=== PATIENT | male | born 1935 | race Caucasian/White ===

== ENCOUNTER → 2016-12-16 | Outpatient (CLI) | payer MEDICARE, BC ==
[~2016-12-16] MED LIST: IOHEXOL 240 MG/ML 50ML VIAL. PO ONE; IOHEXOL 300 MG/ML 75 ML VIAL. IV ONE
[2016-12-16 12:43] LABS: CALCIUM 9.5 mg/dL (8.5-10.1); CREATININE 1.2 mg/dL (0.7-1.3); GFR 57.8; POTASSIUM 4.3 mmol/L (3.5-5.1)
--- NOTE | 2016-12-16 14:02 | RAD ---
Indication lower right-sided pain. Ventral hernia. Imaging through the abdomen and pelvis was performed. Both oral and IV contrast were administered. Approximately 75 cc of Omnipaque 300 was administered intravenously. Note is made of a previous examination almost 12 years ago. There is some minimal pleural-parenchymal scarring at the lung bases. An acute or definite significant finding at either lung base is not seen. Some coronary artery calcification is noted. The liver and spleen appear unremarkable. The gallbladder appears grossly normal. There is no pancreatic pathology. No adrenal or renal anomalies are seen. No acute finding in the abdomen is apparent. The appendix is seen in the right lower quadrant and appears normal. There is extensive diverticulosis seen associated with the large bowel predominantly in the sigmoid colon. Active inflammation is not seen. The prostate is mildly enlarged. An acute finding in the pelvis is not apparent. There are some degenerative changes in the lumbar spine. IMPRESSION: No acute finding seen in the abdomen or pelvis. Moderately extensive diverticulosis associated with the large bowel. This is most pronounced in the sigmoid colon. Active inflammation is not seen. Mildly enlarged prostate PQRS Compliance Statement: One or more of the following individualized dose reduction techniques were utilized for this examination: 1. Automated exposure control 2. Adjustment of the mA and/or kV according to patient size 3. Use of iterative reconstruction technique
== END | disposition home or self-care (01) ==
LOC: LAB 12:03
PROVIDERS: ATTEND Family Medicine
DX: N40.0 Benign prostatic hyperplasia without lower urinary tract symptoms (principal); K43.9 Ventral hernia without obstruction or gangrene
CPT/HCPCS: 36415; 74177; 80048; Q9966; Q9967

== ENCOUNTER 2020-10-26 14:40 | Emergency (ER) | payer MEDICARE, BC ==
[~2020-10-26] VITALS: Ht 175.3 cm; Wt 75.0 kg
[2020-10-26 15:03] VITALS: BP 158/94
--- NOTE | 2020-10-26 15:27 | PHYS DOC ---
Past History Past Medical History: High Cholesterol, Hypertension, Other Additional Past Medical Histor: gout Past Surgical History: Other Additional Past Surgical Histo: stent in 2000 @ [facility] - right coronary artery Alcohol Use: None General Adult EDM: Chief Complaint: BLOOD IN URINE HPI: HPI: Patient is a 85-year-old male who presents with blood in his urine since this morning. Patient denies frequency or dysuria. Patient states this is happened one other time in the past but it resolved on its own. Denies abdominal pain. Patient has a history of gout, hypertension, enlarged prostate. Review of Systems: Review of Systems: Constitutional: Denies fever or chills Eyes: Denies change in visual acuity HENT: Denies nasal congestion or sore throat Respiratory: Denies cough or shortness of breath Cardiovascular: Denies chest pain or edema GI: Denies abdominal pain, nausea, vomiting, bloody stools or diarrhea : Denies dysuria, reports hematuria Musculoskeletal: Denies back pain or joint pain Integument: Denies rash Neurologic: Denies headache, focal weakness or sensory changes Endocrine: Denies polyuria or polydipsia Lymphatic: Denies swollen glands Psychiatric: Denies depression or anxiety Allergies: Allergies: Allergies Coded Allergies Type Severity Reaction Last Updated Verified No Known Drug Allergies 12/16/16 No Physical Exam: PE: Constitutional: Well developed, well nourished, no acute distress, non-toxic appearance. [] HENT: Normocephalic, atraumatic, bilateral external ears normal, oropharynx moist, no oral exudates, nose normal. [] Eyes: PERRLA, EOMI, conjunctiva normal, no discharge. [] Neck: Normal range of motion, no tenderness, supple, no stridor. [] Cardiovascular:Heart rate regular rhythm, no murmur [] Lungs & Thorax: Bilateral breath sounds clear to auscultation [] Abdomen: Bowel sounds normal, soft, no tenderness, no masses, no pulsatile masses. [] Skin: Warm, dry, no erythema, no rash. [] Back: No tenderness, no CVA tenderness. [] Extremities: No tenderness, no cyanosis, no clubbing, ROM intact, no edema. [] Neurologic: Alert and oriented X 3, normal motor function, normal sensory function, no focal deficits noted. [] Psychologic: Affect normal, judgement normal, mood normal. [] Current Patient Data: Vital Signs: Vital Signs Date Time Temp Pulse Resp B/P (MAP) Pulse Ox O2 Delivery O2 Flow Rate FiO2 10/26/20 15:03 86 18 158/94 (115) 98 EKG: EKG: Sinus rhythm. Heart rate [address] Euceda [id number] [] Radiology/Procedures: Radiology/Procedures: []CT scan abdomen and pelvis without contrast 10/26/2020 CLINICAL HISTORY: Abdominal pain. Hematuria. TECHNIQUE: Unenhanced, contiguous, 3 mm axial sections were obtained through the abdomen and pelvis. One or more of the following individualized dose reduction techniques were utilized for this study: 1. Automated exposure control. 2. Adjustment of the mA and/or kV according to patient size. 3. Use of iterative reconstruction technique. FINDINGS: Images through the lung bases demonstrate minimal dependent subsegmental atelectasis bilaterally. The liver, spleen, pancreas, and adrenal glands are within normal limits. No renal or ureteral calculus is seen. There is no evidence of obstruction of either collecting system. Atherosclerotic calcification of the abdominal aorta is seen. The abdominal aorta tapers normally. The gallbladder is slightly contracted. No free fluid or free air is seen within the abdomen. The appendix is well-visualized and is within normal limits. Scattered diverticula are seen involving the colon, particularly the descending and sigmoid colon. No inflammatory changes are seen in the adjacent fat. Images through the pelvis demonstrate the urinary bladder to be contracted. The prostate gland is enlarged likely related to BPH. Asymmetric masslike wall thickening is seen involving the posterior aspect of the urinary bladder, right greater than left. This measures 4.5 cm in greatest diameter. This is concerning for a bladder neoplasm (transitional cell carcinoma). There appear to be faint collections of air wall the urinary bladder, anteriorly. This finding could be seen with emphysematous cystitis. Calcifications are seen within the pelvis consistent with phleboliths. No free fluid is seen. There is a small fat- containing inguinal hernias bilaterally. No pelvic, inguinal or retroperitoneal lymphadenopathy is seen. Very mild S-shaped curvature of the thoracolumbar spine is noted. Degenerative changes are seen involving the lower thoracic and throughout the lumbar spine along with both hips. IMPRESSION: 1. . Asymmetric masslike wall thickening is seen involving the posterior aspect of the urinary bladder, right greater than left which measures 4.5 cm in greatest diameter. This is concerning for a bladder neoplasm. 2. 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 Heart Score: C/O Chest Pain: No Risk Factors: Risk Factors: DM, Current or recent (<one month) smoker, HTN, HLP, family history of CAD, obesity. Risk Scores: Score 0 - 3: 2.5% MACE over next 6 weeks - Discharge Home Score 4 - 6: 20.3% MACE over next 6 weeks - Admit for Clinical Observation Score 7 - 10: 72.7% MACE over next 6 weeks - Early Invasive Strategies Course & Med Decision Making: Course & Med Decision Making Pertinent Labs and Imaging studies reviewed. (See chart for details) Patient presents to emergency room for hematuria that started this morning. Hemoglobin was within normal limits. All other labs were unremarkable. CT of abdomen pelvis was concerning for a bladder mass. Informed patient of CT results and gave follow-up for urology. Instructed patient to follow-up with urology on Wednesday to be evaluated further. Patient states that he understands and will follow up. Instructed patient to return to emergency room if he had worsening symptoms or concerns. Patient is hemodynamically stable upon discharge at the emergency room. Dragon Disclaimer: [facility] Disclaimer: This electronic medical record was generated, in whole or in part, using a voice recognition dictation system. Departure Departure: Impression: Primary Impression: Hematuria Qualified Codes: R31.9 - Hematuria, unspecified Disposition: DC HOME SELF CARE/HOMELESS Condition: STABLE Referrals: YOVANI LONGO MD (PCP) Patient Instructions: Hematuria, Adult Additional Instructions: You were seen in the emergency room today for blood in your urine. The CT of your abdomen and pelvis was concerning for a mass in your bladder. Given you a copy of the CT report. It is important that you follow-up with urology on Wednesday morning to have further testing. Please return to the emergency room with worsening symptoms or concerns. [facility] Urology clinic [address] [place] [address] EMERGENCY DEPARTMENT GENERAL DISCHARGE INSTRUCTIONS Thank you for coming to [facility] (ED) today and trusting us with you care. We trust that you had a positivie experience in our Emergency Department. If you wish to speak to the department management, you may call the director at [phone]. YOUR FOLLOW UP INSTRUCTIONS ARE FOLLOWS: 1. Do you have a private Doctor? If you do not have a private doctor, please ask for a resource list of physicians or clinics that may be able to assist you with follow up care. 2. The Emergency Physician has interpreted your x-rays. The X-Ray specialist will also review them. If there is a change in the findings, you will be notified in 48 hours when at all possible. 3. A lab test or culture has been done, your results will be reviewed and you will be notified if you need a change in treatment. ADDITIONAL INSTRUCTIONS AND INFORMATION: 1. Your care today has been supervised by a physician who is specially trained in emergency care. Many problems require more than one evaluation for a complete diagnosis and treatment. We recommend that you schedule your follow up appointment as recommended to ensure complete treatment of you illness or injury. If you are unable to obtain follow up care and continue to have a problem, or if your condition worsens, we recommend that you return to the ED. 2. We are not able to safely determine your condition over the phone nor are we able to give sound medical advice over the phone. For these safety reasons, if you call for medical advice we will ask you to come to the ED for further evaluation. 3. If you have any questions regarding these discharge instructions please call the ED at [phone]. SAFETY INFORMATION: In the interest of safety, wellness, and injury prevention; we encourage you to wear your sealbelt, if you smoke; quite smoking, and we encourage family to use a protective helmet for bicycling and other sporting events that present an increased risk for head injury. IF YOUR SYMPTOMS WORSEN OR NEW SYMPTOMS DEVELOP, OR YOU HAVE CONCERNS ABOUT YOUR CONDITION; OR IF YOUR CONDITION WORSENS WHILE YOU ARE WAITING FOR YOUR FOLLOW UP APPOINTMENT; EITHER CONTACT YOUR PRIMARY CARE DOCTOR, THE PHYSICIAN WHOSE NAME AND NUMBER YOU WERE GIVEN, OR RETURN TO THE ED IMMEDIATELY. BECKY GRAMAJO APRN Oct 26, 2020 15:27
--- NOTE | 2020-10-26 15:31 | EKG ---
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
[2020-10-26 15:46] LABS: BACTERIA,URINE FEW /HPF (0-FEW); BILIRUBIN,URINE SMALL (NEG); CLARITY,URINE CLOUDY; COLOR,URINE AMBER; GLUCOSE,URINE NEG (NEG); NITRITE,URINE NEG (NEG); RBC,URINE >40 /HPF (0-2); SQUAMOUS EPITHELIAL CELL,UR OCC /LPF; WBC,URINE RARE /HPF (0-4)
[2020-10-26 16:03] LABS: CALCIUM 9.6 mg/dL (8.5-10.1); CREATININE 1.4 mg/dL (0.7-1.3); GFR 47.9; POTASSIUM 4.4 mmol/L (3.5-5.1)
--- NOTE | 2020-10-26 16:04 | RAD ---
CT scan abdomen and pelvis without contrast 10/26/2020 CLINICAL HISTORY: Abdominal pain. Hematuria. TECHNIQUE: Unenhanced, contiguous, 3 mm axial sections were obtained through the abdomen and pelvis. One or more of the following individualized dose reduction techniques were utilized for this study: 1. Automated exposure control. 2. Adjustment of the mA and/or kV according to patient size. 3. Use of iterative reconstruction technique. FINDINGS: Images through the lung bases demonstrate minimal dependent subsegmental atelectasis bilate rally. The liver, spleen, pancreas, and adrenal glands are within normal limits. No renal or ureteral calcul us is seen. There is no evidence of obstruction of either collecting system. Atherosclerotic calcification of the abdominal aorta is seen. The abdominal aorta tapers normally. Th e gallbladder is slightly contracted. No free fluid or free air is seen within the abdomen. The appen bryce is well-visualized and is within normal limits. Scattered diverticula are seen involving the colo n, particularly the descending and sigmoid colon. No inflammatory changes are seen in the adjacent fa t. Images through the pelvis demonstrate the urinary bladder to be contracted. The prostate gland is enl arged likely related to BPH. Asymmetric masslike wall thickening is seen involving the posterior aspe ct of the urinary bladder, right greater than left. This measures 4.5 cm in greatest diameter. This i s concerning for a bladder neoplasm (transitional cell carcinoma). There appear to be faint collectio ns of air wall the urinary bladder, anteriorly. This finding could be seen with emphysematous cystiti s. Calcifications are seen within the pelvis consistent with phleboliths. No free fluid is seen. Ther e is a small fat-containing inguinal hernias bilaterally. No pelvic, inguinal or retroperitoneal lymp hadenopathy is seen. Very mild S-shaped curvature of the thoracolumbar spine is noted. Degenerative changes are seen invol ving the lower thoracic and throughout the lumbar spine along with both hips. IMPRESSION: 1. . Asymmetric masslike wall thickening is seen involving the posterior aspect of the urinary bladde r, right greater than left which measures 4.5 cm in greatest diameter. This is concerning for a bladd er neoplasm. 2. Small collections of air are seen within the wall of the urinary bladder, anteriorly concerning fo r emphysematous cystitis. Electronically signed by: Theodore Wick MD (10/26/2020 4:02 PM) [id number]
[2020-10-26 16:09] LABS: ALBUMIN 4.2 g/dL (3.4-5.0); ALBUMIN/GLOBULIN RATIO 1.2 (1.0-1.7); TOTAL BILIRUBIN 0.9 mg/dL (0.2-1.0); TOTAL PROTEIN 7.7 g/dL (6.4-8.2)
[2020-10-26 16:12] LABS: BASO % 1 % (0-3); EOS # 0.1 x10^3/uL (0.0-0.7); EOS % 1 % (0-3); HEMATOCRIT 42.4 % (39.0-53.0); HEMOGLOBIN 14.5 g/dL (13.0-17.5); LYMPH # 0.9 x10^3/uL (1.0-4.8); LYMPH % 13 % (24-48); MEAN CORPUSCULAR HEMOGLOBIN 32 pg (25-35); MEAN CORPUSCULAR HGB CONC 34 g/dL (31-37); MEAN CORPUSCULAR VOLUME 93 fL (79-100); MONO # 0.5 x10^3/uL (0.0-1.1); MONO % 8 % (0-9); NEUT # 5.2 x10^3uL (1.8-7.7); NEUT % 77 % (31-73); PLATELET COUNT 184 x10^3/uL (140-400); RED BLOOD COUNT 4.58 x10^6/uL (4.30-5.70); RED CELL DISTRIBUTION WIDTH 13.6 % (11.5-14.5); WHITE BLOOD COUNT 6.7 x10^3/uL (4.0-11.0)
== END 2020-10-26 16:42 | disposition home or self-care (01) ==
LOC: ER 14:40
DX: R31.9 Hematuria, unspecified (principal); I10 Essential (primary) hypertension; E78.00 Pure hypercholesterolemia, unspecified; M10.9 Gout, unspecified; N40.1 Benign prostatic hyperplasia with lower urinary tract symptoms; Z96.0 Presence of urogenital implants
CPT/HCPCS: 36415; 74176; 80053; 81001; 85025; 93005; 99285-25